=== PATIENT | female | born 1940 | race Caucasian/White ===

== ENCOUNTER 2022-06-07 07:20 | Day surgery (SDC) | payer OTHER, SELFPAY ==
[2022-05-31] MEDS: LACTATED RINGERS 1000 ML 1,000 ML 35 ML IV (11:30)
[2022-06-07] VITALS (30 sets, daily range): BP systolic 85–151; BP diastolic 38–106; PULSE 53–91; RESP 12–20; TEMP 35.4–36.7; O2SAT 86–98; BMI 32.9
[2022-06-07] MEDS: LACTATED RINGERS 1000 ML 1,000 ML 100 ML IV (07:30)
[2022-06-07] MEDS: SODIUM CHLORIDE 0.9 % (FLUSH) 10 ML SYRINGE IVF (07:55)
[2022-06-07] MEDS: CELECOXIB 200 MG CAPSULE PO ×2 (08:06→21:01)
[2022-06-07] MEDS: OXYCODONE (CR) 10 MG TAB.ER.12H PO (08:06)
--- NOTE | 2022-06-07 08:23 | SUR.PREOP ---
TIME?OUT:? PT/RN/MDA?VERIFICATION?OF?SURGICAL?SITE,?PROCEDURE,?AND?CONSENT OBTAINED?PRIOR?TO?INVASIVE?PROCEDURE. correct site identified SITE MARKED BLOCK COMPLETED BY DR Malik GUNN MDA
[2022-06-07] MEDS: fentaNYL 100 MCG/2 ML inj IVP (08:26)
[2022-06-07] MEDS: MIDAZOLAM HCL 1 MG/ML inj IVP (08:26)
[2022-06-07] MEDS: CEFAZOLIN 2 GM INJ IVP (08:40)
[2022-06-07] MEDS: LACTATED RINGERS 1000 ML 1,000 ML 125 ML IV (09:33)
--- NOTE | 2022-06-07 09:56 | W.PM.NB ---
Nerve Block Nerve Block Time Seen by Provider: 07:30 Date Seen: 06/07/22 Type of block requested by surgeon for post-operative analgesia: adductor canal Side: right Time out performed: Yes Verification of patient name: Yes Verification of date of : Yes Site marking: site marked Name of person performing procedure: Richard Continuous monitoring Was continuous monitoring of O2 sat, B/P, traffic monitor specialist, recorded every 15 minutes?: Yes Procedure Checklist: sterile prep, needles and gloves Ultrasound guided. Images saved: Yes Medications given in 5ml increments after negative aspiration: Ropivicaine %: 0.5 mL: 20 Needle gauge: 22 Decadron (mg): 10 Precedex (mcg): 25 Patient tolerated procedure well: Yes Additional comments: Needle noted adjacent to nerve
--- NOTE | 2022-06-07 09:57 | W.PM.NB ---
Nerve Block Nerve Block Time Seen by Provider: 07:30 Date Seen: 06/07/22 Type of block requested by surgeon for post-operative analgesia: geniculars Side: right Time out performed: Yes Verification of patient name: Yes Verification of date of : Yes Site marking: site marked Name of person performing procedure: Richard Continuous monitoring Was continuous monitoring of O2 sat, B/P, nuclear monitoring technician, recorded every 15 minutes?: Yes Procedure Checklist: sterile prep, needles and gloves Ultrasound guided. Images saved: Yes Medications given in 5ml increments after negative aspiration: Ropivicaine %: 0.5 mL: 9 Needle gauge: 25 Patient tolerated procedure well: Yes Additional comments: Needle noted adjacent to nerve
--- NOTE | 2022-06-07 10:00 | CRLHL7_ITS ---
For Patients: As a result of the Cures Act, medical imaging exams and procedure reports are released immediately into your electronic medical record. You may view this report before your referring provider. If you have questions, please contact your health care provider. Indication: POST OP RIGHT TKA Technique: Two views right knee Findings/Impression: Hardware from a right total knee arthroplasty is in satisfactory position. Bone alignment is normal. No sign of acute fracture. Postop changes are within normal limits. Dictated by Suleiman Salinas MD @ 06/07/2022 11:02:22 AM (Electronically Signed)
--- NOTE | 2022-06-07 10:01 | PM.ORPRC ---
Procedure Note Date of procedure: 06/07/22 Procedure: SURGEON: Lobo Gregg MD ELECTRICIAN SHIP: ADELA Spann PREOPERATIVE DIAGNOSIS: Right knee osteoarthritis POSTOPERATIVE DIAGNOSIS: Right knee osteoarthritis NAME OF OPERATION: Right total knee arthroplasty ANESTHESIA: Spinal ESTIMATED BLOOD LOSS: 0 mL COMPLICATIONS: None SPECIMENS: None DRAINS: None PREOPERATIVE ANTIBIOTICS: Ancef 2 grams IMPLANTS: 1. J&J Attune # 5 narrow posterior stabilized femur 2. # 3 fixed-bearing tibia 3. # 5 posterior stabilized, 7 mm fixed-bearing polyethylene 4. 38 patella INDICATIONS: The patient is a 81-year-old female with a longstanding history of severe, unrelenting right knee pain secondary to end-stage (grade IV) right knee osteoarthritis. Despite appropriate nonoperative management, including activity modification, anti-inflammatories, [id number] pain medication, bracing, physical therapy, and injections they continue to have pain and disability. Operative intervention was offered. The risks, benefits and expected outcomes were discussed in detail. These included but were not limited to: Infection, bleeding, injury to blood vessel or nerve, venous thromboembolism. All questions were answered to their satisfaction. Use of an dental hygiene administrative assistant was necessary throughout the case for patient positioning and safety, soft tissue retraction, and closure. PROCEDURE: Spinal anesthesia was administered. The patient was placed supine on the operating table. The dental hygiene administrative assistant made sure the patient was positioned appropriately. The lower extremity was prepped and draped in the usual sterile fashion. The limb was exsanguinated with the Dom bandage. The pneumatic tourniquet was inflated to 300 mmHg. A standard anterior incision was made with the knee in flexion. Subcutaneous dissection was sharply taken through fascial layer #1. Full-thickness medial and lateral flaps were elevated. The dental hygiene administrative assistant retracted the soft tissues and protected them throughout the case. A standard medial parapatellar approach was made. The patella was everted. The infrapatellar fat pad was preserved. The menisci and cruciate ligaments were sharply d?brided. Marginal osteophytes were d?brided with the rongeur. The drill was used to penetrate the femoral canal. The canal was aspirated and irrigated with pulse lavage. The intramedullary femoral guide was placed for a 5-degree valgus cut, removing 10 mm off the distal femur. The saw was used to make the cut. Whitesides line and the trans epicondylar axis were marked. The femoral sizing guide was pinned onto the distal femur. Three degrees of external rotation nicely parallels the transepicondylar axis. Pins were placed for posterior referencing. The four-in-one cutting guide was pinned onto the distal femur. The anterior, posterior, and chamfer cuts were made. The dental hygiene administrative assistant protected the collateral ligaments. The box cutting guide was pinned. The box cuts were made. The boxed trial was placed and was an excellent fit. Drill holes for the lugs were made. Attention was then turned to the proximal tibia. The extramedullary tibial guide was placed for a neutral varus/valgus cut with 5 degrees of posterior slope, removing 1 mm based off the medial tibial surface. The dental hygiene administrative assistant protected the collateral ligaments and the neurovascular bundle. The saw was used to make the cut. Trial components were placed. The knee was nicely balanced in both flexion and extension. Rotation of the tibial component was matched to the femur in full extension, matched to our tibial cutting pins, and marked with cautery. The trial components were removed. The tray was pinned by the dental hygiene administrative assistant and the drill and the punch were used. The tray was removed. The punch was used again. We placed a bone plug in the femoral canal. Attention was then turned to the patella. [place] patellar thickness was 20 mm. The lobster claw resection guide was used with the 7.5 mm clarissa. The saw was used to make the cut. Drill holes were made by the dental hygiene administrative assistant. The trial was placed and was an excellent fit. Cancellous surfaces were irrigated with pulse lavage and thoroughly dried by the dental hygiene administrative assistant. We cemented the tibial component, then the femoral component. A trial spacer was placed. The knee was brought into full extension. We then cemented the patellar component. Excessive cement was removed. The cement was allowed to harden. Any remaining excessive cement was removed with the osteotome. We impacted the 7 mm polyethylene onto the tibial tray. The knee was taken through a range of motion and was found to be nicely balanced in both flexion and extension. The patella tracks centrally. The dental hygiene administrative assistant did a three minute dilute Betadine solution soak. The dental hygiene administrative assistant irrigated the wound with 3 liters of normal saline via pulse lavage. The dental hygiene administrative assistant reapproximated the extensor mechanism with #1 Vicryl in an interrupted [id number] fashion. The dental hygiene administrative assistant then ran the extensor mechanism with a #1 PDO Stratafix. The dental hygiene administrative assistant closed the subcutaneous tissues with a 3-0 Stratafix and the skin with a running 3-0 Stratafix in a subcuticular fashion. Glue was used to seal the skin. The dental hygiene administrative assistant placed a dry dressing, NOREEN stocking, and Polar Care. Sponge and needle counts were correct x2. The patient tolerated the procedure well. There were no apparent complications. They were carefully transferred to the hospital bed and taken to the postanesthesia care unit in satisfactory condition. PLAN: The patient will be mobilized with physical therapy. Aspirin will be used for DVT prophylaxis. They will be discharged to home once medically appropriate.
--- NOTE | 2022-06-07 10:40 | W.ANESCHARGE ---
Anesthesia Charges Start Date/Time Anesthesia Start Date: 06/07/22 Anesthesia Start Time: 08:35 Stop Date/Time Anesthesia Stop Date: 06/07/22 Anesthesia Stop Time: 10:39 Summary Emergency: No Extremes of Age: Over 70-CPT 55324
[2022-06-07] MEDS: LACTATED RINGERS 1000 ML 1,000 ML 35 ML IV ×2 (10:57→10:59)
--- NOTE | 2022-06-07 11:35 | W.ANESCHARGE ---
Anesthesia Charges Start Date/Time Anesthesia Start Date: 06/07/22 Anesthesia Start Time: 08:35 Stop Date/Time Anesthesia Stop Date: 06/07/22 Anesthesia Stop Time: 10:39 Summary Emergency: No Extremes of Age: Over 70-CPT 29095
--- NOTE | 2022-06-07 12:37 | SUR.PHASEI ---
Patient to PACU per bed. Tolerated procedure well. VSS, with exception of SAO2. O2 on per nasal cannula at 3 L. Patient is mouth breather so encouraged to take deep breaths through her nose. Patient was able to move lower extremities upon arrival with complete feeling of each. Patient denied any pain. Dressing to right knee dry and secure with ice on. Patient met discharge criteria for phase I recovery and transferred to med/surg at 1150. Face to face hand-off given to nurse.
--- NOTE | 2022-06-07 12:47 | P.IMCN_ITS ---
Date of Consult Consult date: 06/07/22 Requesting Physician: Orthopedics Primary Care Provider: Not a Local Provider Consult Narrative Reason for consult: management of medical problems postoperatively Narrative: Jemima Godinez is a 81 year old female who underwent right total knee arthroplasty today. Procedure performed by Dr. Gregg. No operative complications. Postoperatively she reports she is doing well. She has no concerns. Nursing staff note that she has been hypoxic and in recovery she was noted to be snoring. She does report that once a while when she sleeps on her back that she does gasp for air that wakes her up. Review of Systems Narrative: She reports she has been feeling well prior to surgery. No recent illness. No shortness of breath or chest pain. No stomach problems. She does report she has chronic loose stools and has multiple bowel movements per day typically. Concern for sleep apnea prior to this surgery. She does report at home she sleeps on her side. She lives alone in her apartment in [place]. She has to do no steps to get in out. She walks with a walker. Her daughter lives nearby. [facility] Medical History (Updated 06/07/22 @ 12:55 by Ryne Park MD) DM (diabetes mellitus), type 2 Hyperlipidemia Hypertension Surgical History (Updated 06/07/22 @ 12:51 by Ryne Park MD) History of cataract surgery Family History (Updated 06/07/22 @ 12:52 by Ryne Park MD) Father Coronary artery disease Mother Coronary artery disease Sister High blood pressure Social History Smoking Status: Never smoker Do you use any of these nicotine containing products: None How often do you have a drink containing alcohol: never How often do you have six or more drinks on one occasion: Never AUDIT-C Alcohol total score: 0 Caffeine: Yes (coffee, 1 cup/day) Meds Home Medications and Allergies Home Medications Medication Instructions Recorded Confirmed Type acetaminophen 500 mg capsule 500 mg PO Q6H PRN 06/03/22 06/07/22 History aspirin 81 mg chewable tablet 81 mg PO DAILY 06/03/22 06/07/22 History cholecalciferol (vitamin D3) 25 1,000 unit PO DAILY 06/03/22 06/07/22 History mcg (1,000 unit) capsule lisinopril 10 1 tab PO DAILY 06/03/22 06/07/22 History mg-hydrochlorothiazide 12.5 mg tablet metformin 1,000 mg tablet 1,000 mg PO BID 06/03/22 06/07/22 History multivitamin 1 tab PO DAILY 06/03/22 06/07/22 History simvastatin 10 mg tablet 10 mg PO HS 06/03/22 06/07/22 History sitagliptin 50 mg tablet (Januvia) 50 mg PO DAILY 06/03/22 06/07/22 History Home Medication Comments: she stop taking aspirin on Monday, 4 days ago Allergies Allergy/AdvReac Type Severity Reaction Status Date / Time Penicillins Allergy Unknown Verified 06/07/22 09:23 Exam Narrative: Exam Narrative: she is alert and appears in no distress. Eyes normal. Oropharynx with very small airway. Poor dentition with multiple missing teeth. Neck is supple without mass or adenopathy. Respirations are clear to auscultation. Cardiovascular: S1, S2, regular rate and rhythm. Abdomen: Bowel sounds active. Abdomen is soft without tenderness or mass. Extremities with intact pulses and sensation. She moves all 4 extremities well. Right knee is bandaged with an ice pack Const: Vital Signs, click to edit/add: Vital Signs - 24 hr 06/07/22 07:42 06/07/22 08:31 06/07/22 10:31 Temperature 98 F 97.2 F L Pulse Rate 78 82 73 Respiratory Rate 20 14 18 Blood Pressure 130/68 135/77 85/48 L Pulse Oximetry 97 86 L 06/07/22 10:35 06/07/22 10:40 06/07/22 10:45 Temperature Pulse Rate 66 53 L 54 L Respiratory Rate 12 16 16 Blood Pressure 89/57 L 92/78 140/81 H Pulse Oximetry 93 94 91 06/07/22 10:50 06/07/22 10:55 06/07/22 11:00 Temperature Pulse Rate 55 L 58 L 61 Respiratory Rate 15 15 16 Blood Pressure 126/63 104/59 L 99/60 Pulse Oximetry 89 89 91 06/07/22 11:04 06/07/22 11:05 06/07/22 11:10 Temperature Pulse Rate 64 62 61 Respiratory Rate 16 15 Blood Pressure 99/60 93/56 L 94/64 Pulse Oximetry 98 92 94 06/07/22 11:13 06/07/22 11:15 07/12/22 11:17 Temperature Pulse Rate 67 66 66 Respiratory Rate Blood Pressure 89/49 L Pulse Oximetry 95 88 97 Documenting provider has reviewed patient's vital signs: yes Assessment and Plan Assessment and plan (1) Low blood pressure: Problem comment: Likely due to surgery. Not felt to be significant blood loss. Possibly related to medications. Status: Acute Assessment and Plan: hold antihypertensive medicines pending return of high blood pressure. Fluid bolus as needed. (2) Hypoxia: Problem comment: Suspect combination of sleep apnea and anesthesia Status: Acute Assessment and Plan: monitor overnight and supplemental oxygen as needed. consider outpatient sleep study (3) Hard of hearing: Status: Acute Assessment and Plan: careful attention to communication needs (4) Hypertension: Status: Acute Assessment and Plan: hold blood pressure medicine for now (5) DM (diabetes mellitus), type 2: Status: Acute Assessment and Plan: monitor blood sugars, sliding scale, resume normal diabetes medicines. (6) Suspected sleep apnea: Status: Acute Assessment and Plan: Outpatient evaluation. Monitoring while she is hospitalized
[2022-06-07] MEDS: OXYCODONE 5 MG TABLET PO ×3 (14:07→19:45)
[2022-06-07] MEDS: CEFAZOLIN 2 GM in 0.9 % SODIUM CHLORIDE Mini-bag 100 ML IVPB ×2 (14:54→22:49)
[2022-06-07] MEDS: ACETAMINOPHEN 500 MG TABLET 1000 MG PO (17:41)
[2022-06-07] MEDS: METFORMIN 1,000 MG TABLET 1000 MG PO (17:43)
[2022-06-07] MEDS: SIMVASTATIN 10 MG TABLET PO (20:59)
[2022-06-07] MEDS: ASPIRIN 81 MG TABLET EC PO (20:59)
--- NOTE | 2022-06-07 23:19 | PC.NURSE ---
End of Shift ([id number]): Patient pleasant and cooperative. Afebrile. Dressing to right knee C/D/I. CMS intact. Rating pain up to 6-9/10 and PRN Oxycodone given x1. Up to bathroom and chair with 1 assist, walker and gait belt. Tolerating regular diet with no nausea.
[2022-06-08] MEDS: ACETAMINOPHEN 500 MG TABLET 1000 MG PO ×3 (00:02→11:41)
[2022-06-08] MEDS: HYDROmorphone 0.5 mg/0.5 ml inj IVP (02:02)
[2022-06-08 03:00] VITALS: BP 96/54; PULSE 75; RESP 16; TEMP 36.6; O2SAT 95
[2022-06-08 05:00] VITALS: RESP 16; O2SAT 95
[2022-06-08] MEDS: CEFAZOLIN 2 GM in 0.9 % SODIUM CHLORIDE Mini-bag 100 ML IVPB (06:30)
--- NOTE | 2022-06-08 07:15 | PC.NURSE ---
Shift 7p-7a: Pt. AOx4, VSS on 1L NC for comfort during sleep. Pt.'s 0500 BP 105/81. Pt. ambulated Assistx1 w/ RW to toilet several times with RN. LR fluids discontinued due to adequate oral intake. Pt. c/o of RT knee pain, well controlled by scheduled Tylenol. Pt. has good pulses on bilateral feet, RT knee incision site dressing C/D/I with cryo cuff applied. Plan for pt. to discharge home today with PT/OT at home.
[2022-06-08] MEDS: OXYCODONE 5 MG TABLET PO ×2 (07:48→11:38)
[2022-06-08] MEDS: METFORMIN 1,000 MG TABLET 1000 MG PO (07:49)
[2022-06-08 08:15] VITALS: BP 122/76; PULSE 79; RESP 20; TEMP 36.8; O2SAT 96
--- NOTE | 2022-06-08 09:07 | P.ORPN_ITS ---
Subjective Subjective Time Seen by Provider: 08:00 Date Seen: 06/08/22 Principal diagnosis: Status post right knee replacement Interval history: Patient is comfortable this morning. Home PT is requested upon discharge. Ortho Exam Narrative Exam Narrative: Alert and oriented x3. Hard of hearing. Patient is in no acute distress. Converses without labored breathing. Hearing is grossly intact. Ambulates with a walker. Examination of the right knee shows dressing is in place. Mild effusion. Mild soft tissue edema about the right knee. CMS intact right lower extremity. Bilateral calves are soft and nontender. Const Vital Signs, click to edit/add: Vital Signs - 24 hr 06/07/22 10:31 06/07/22 10:35 06/07/22 10:40 Temperature 97.2 F L Pulse Rate 73 66 53 L Pulse Rate [Pulse Oximeter] Respiratory Rate 18 12 16 Blood Pressure 85/48 L 89/57 L 92/78 Blood Pressure [Right Arm] Pulse Oximetry 86 L 93 94 06/07/22 10:45 06/07/22 10:50 06/07/22 10:55 Temperature Pulse Rate 54 L 55 L 58 L Pulse Rate [Pulse Oximeter] Respiratory Rate 16 15 15 Blood Pressure 140/81 H 126/63 104/59 L Blood Pressure [Right Arm] Pulse Oximetry 91 89 89 06/07/22 11:00 06/07/22 11:04 06/07/22 11:05 Temperature Pulse Rate 61 64 62 Pulse Rate [Pulse Oximeter] Respiratory Rate 16 16 Blood Pressure 99/60 99/60 93/56 L Blood Pressure [Right Arm] Pulse Oximetry 91 98 92 06/07/22 11:10 06/07/22 11:13 06/07/22 11:15 Temperature Pulse Rate 61 67 66 Pulse Rate [Pulse Oximeter] Respiratory Rate 15 Blood Pressure 94/64 Blood Pressure [Right Arm] Pulse Oximetry 94 95 88 06/07/22 11:17 06/07/22 12:00 06/07/22 12:15 Temperature 95.7 F L 96.3 F L Pulse Rate 66 Pulse Rate [Pulse Oximeter] 69 66 Respiratory Rate 16 16 Blood Pressure 89/49 L Blood Pressure [Right Arm] 128/38 L 97/75 Pulse Oximetry 97 88 97 06/07/22 12:30 06/07/22 12:45 06/07/22 13:00 Temperature 96.5 F L 96.3 F L Pulse Rate Pulse Rate [Pulse Oximeter] 80 86 76 Respiratory Rate 18 16 16 Blood Pressure Blood Pressure [Right Arm] 92/66 109/72 101/61 Pulse Oximetry 95 96 96 06/07/22 13:25 06/07/22 13:30 06/07/22 14:00 Temperature 96.6 F L Pulse Rate Pulse Rate [Pulse Oximeter] 81 78 Respiratory Rate 16 16 16 Blood Pressure Blood Pressure [Right Arm] 104/69 102/81 Pulse Oximetry 95 95 94 06/07/22 15:00 06/07/22 16:00 06/07/22 17:00 Temperature 96.7 F L 97.6 F 98.0 F Pulse Rate Pulse Rate [Pulse Oximeter] 81 87 91 Respiratory Rate 16 16 16 Blood Pressure Blood Pressure [Right Arm] 151/106 H 129/105 H 128/61 Pulse Oximetry 94 95 94 06/07/22 18:00 06/07/22 19:00 06/07/22 21:25 Temperature 97.6 F 97.7 F Pulse Rate Pulse Rate [Pulse Oximeter] 86 82 Respiratory Rate 16 16 Blood Pressure Blood Pressure [Right Arm] 113/82 123/104 H Pulse Oximetry 94 95 95 06/07/22 23:00 06/08/22 03:00 06/08/22 05:00 Temperature 98 F 97.9 F Pulse Rate Pulse Rate [Pulse Oximeter] 75 75 Respiratory Rate 16 16 16 Blood Pressure Blood Pressure [Right Arm] 125/68 96/54 L Pulse Oximetry 92 95 95 06/08/22 08:15 Temperature 98.2 F Pulse Rate Pulse Rate [Pulse Oximeter] 79 Respiratory Rate 20 Blood Pressure Blood Pressure [Right Arm] 122/76 Pulse Oximetry 96 Assessment and Plan Assessment and plan (1) Low blood pressure: Problem details: Likely due to surgery. Not felt to be significant blood loss. Possibly related to medications. Status: Acute (2) Hypoxia: Problem details: Suspect combination of sleep apnea and anesthesia Status: Acute (3) Hard of hearing: Status: Acute (4) Hypertension: Status: Acute (5) DM (diabetes mellitus), type 2: Status: Acute (6) Suspected sleep apnea: Status: Acute (7) Status post right knee replacement: Problem details: Plan for discharge is today to home if they meet discharge criteria. DVT prophylaxis includes aspirin 81 mg twice daily x1 month, Reji stockings x1 m onth may remove for 1 hr per day, frequent ambulation Remove dressing in 1 week. Observe wound and phone Orthopedics with any questions or concerns Return to clinic in 1 week for a wound check Return to clinic in [address] Gregg Minimize narcotic use. Wean off and discontinue soon as possible. Activities as tolerated. No strenuous activity. In-home physical therapy verses Outpatient physical therapy as scheduled. Staff is in into home physical therapy for Jemima. Ice and elevate the operative extremity. No restriction on ice. Status: Acute
[2022-06-08] MEDS: CELECOXIB 200 MG CAPSULE PO (09:31)
[2022-06-08] MEDS: MULTIVITAMIN/MINERALS 1 TABLET 1 TAB PO (09:31)
[2022-06-08] MEDS: ASPIRIN 81 MG TABLET EC PO (09:31)
[2022-06-08] MEDS: SENNOSIDES 1 TAB TABLET 2 TAB PO (09:32)
[2022-06-08] MEDS: SITAGLIPTIN PHOSPHATE 50 MG TABLET PO (09:33)
[2022-06-08 09:42] LABS: Mean Corpuscular HGB Conc 32 gm/dL (32-36); Mean Corpuscular Hemoglobin 31 pg (26-34); Mean Corpuscular Volume 95 fL (80-100); Platelet Count* 222 K/uL (140-440); Red Blood Count 3.28 m/uL (4.00-5.20); White Blood Count* 16.39 K/uL (4.50-11.00)
[2022-06-08 09:43] LABS: Slide Review Reflex No
[2022-06-08 09:53] LABS: Chloride* 99 mmol/L (96-114); Potassium* 4.5 mmol/L (3.6-5.1); Sodium* 130 mmol/L (135-149)
[2022-06-08 09:56] LABS: Blood Urea Nitrogen* 29 mg/dL (7-30); Carbon Dioxide* 22 mmol/L (20-32); Creatinine* 1.2 mg/dL (0.5-1.5); Est. Creatinine Clearance* 28.59; Estimated Glomerular Filt Rate 45.19
[2022-06-08 12:00] VITALS: BP 118/93; PULSE 76; RESP 18; TEMP 36.5; O2SAT 92
--- NOTE | 2022-06-08 12:58 | PM.DS1 ---
DS: Providers Provider Primary care physician: Not a Local Provider Attending Physician on discharge: Lobo Gregg MD DS: Diagnosis Discharge Diagnosis (1) Status post right knee replacement: Status: Acute Problem details: Plan for discharge is today to home if they meet discharge criteria. DVT prophylaxis includes aspirin 81 mg twice daily x1 month, Reji stockings x1 month may remove for 1 hr per day, frequent ambulation Remove dressing in 1 week. Observe wound and phone Orthopedics with any questions or concerns Return to clinic in 1 week for a wound check Return to clinic in [address] Gregg Minimize narcotic use. Wean off and discontinue soon as possible. Activities as tolerated. No strenuous activity. In-home physical therapy verses Outpatient physical therapy as scheduled. Staff is in into home physical therapy for Jemima. Ice and elevate the operative extremity. No restriction on ice. (2) Low blood pressure: Status: Acute Problem details: Likely due to surgery. Not felt to be significant blood loss. Possibly related to medications. Blood pressure better this morning. Resume blood pressure medicines on discharge (3) Hypoxia: Status: Acute Problem details: Suspect combination of sleep apnea and anesthesia . Did not need oxygen overnight. (4) Suspected sleep apnea: Status: Acute Problem details: consider sleep study as outpatient. DS: Summary Hospital Course Hospital Course: 81-year-old female admitted to the hospital for right total knee arthroplasty. Procedures performed on the day of admission by Dr. Gregg. There were no complications. She has been doing well postoperatively. She did have low blood pressure postoperatively and that has improved. Blood pressure medicines have been temporarily held. She was hypoxic postoperatively and that has improved as well. There was suspicion for sleep apnea though after she recovers from anesthesia she did well. Status at Discharge Functional status at discharge: uses cane/walker Time Spent with Patient Time attestation: Total time spent providing and/or coordinating discharge services: Time spent: Greater than 30 minutes Exam Narrative: Exam Narrative: She is alert and appears in no distress. She is hard of hearing. Breathing is unlabored. She has just finished breakfast. Lower extremities are examined without marked edema it. She has intact peripheral pulses motion and strength. Const: Vital Signs, click to edit/add: Vital Signs - 24 hr 06/07/22 13:00 06/07/22 13:25 06/07/22 13:30 Temperature 96.3 F L 96.6 F L Pulse Rate [Pulse Oximeter] 76 81 Respiratory Rate 16 16 16 Blood Pressure [Ri ght Arm] 101/61 104/69 Pulse Oximetry 96 95 95 06/07/22 14:00 06/07/22 15:00 06/07/22 16:00 Temperature 96.7 F L 97.6 F Pulse Rate [Pulse Oximeter] 78 81 87 Respiratory Rate 16 16 16 Blood Pressure [Ri ght Arm] 102/81 151/106 H 129/105 H Pulse Oximetry 94 94 95 06/07/22 17:00 06/07/22 18:00 06/07/22 19:00 Temperature 98.0 F 97.6 F 97.7 F Pulse Rate [Pulse Oximeter] 91 86 82 Respiratory Rate 16 16 16 Blood Pressure [Ri ght Arm] 128/61 113/82 123/104 H Pulse Oximetry 94 94 95 06/07/22 21:25 06/07/22 23:00 06/08/22 03:00 Temperature 98 F 97.9 F Pulse Rate [Pulse Oximeter] 75 75 Respiratory Rate 16 16 Blood Pressure [Ri ght Arm] 125/68 96/54 L Pulse Oximetry 95 92 95 06/08/22 05:00 06/08/22 08:15 06/08/22 12:00 Temperature 98.2 F 97.7 F Pulse Rate [Pulse Oximeter] 79 76 Respiratory Rate 16 20 18 Blood Pressure [Ri ght Arm] 122/76 118/93 H Pulse Oximetry 95 96 92 Documenting provider has reviewed patient's vital signs: yes DS: Data Data Completed and Pending Labs on day of discharge: Labs from last 24 hours 06/08/22 06/08/22 09:20 09:20 WBC 16.39 H RBC 3.28 L Hgb 10.0 L Hct 31.0 L MCV 95 MCH 31 MCHC 32 Plt Count 222 Sodium 130 L Potassium 4.5 Chloride 99 Carbon Dioxide 22 BUN 29 Creatinine 1.2 Estimated Creat Clear 28.59 Discharge Plan Discharge Disposition: Home, Self-Care Discharging Surgeon: Lobo Gregg Follow-Up Appointment: One week Prescriptions: New aspirin 81 mg Tablet,Delayed Release (Dr/Ec) 81 mg PO BID Qty: 60 0RF acetaminophen 500 mg Tablet 500 - 1,000 mg PO Q6H PRNQty: 100 0RF oxycodone 5 mg Tablet 2.5 - 5 mg PO Q4-6H MDD 6 tabs per day PRN (Reason: Pain) Qty: 42 0RF Rx Instructions: Minimize. Discontinue as soon as possible sennosides [Senna Lax] 8.6 mg Tablet 2 tab PO BID PRNQty: 100 0RF Continued simvastatin 10 mg tablet 10 mg PO HS 0RF metformin 1,000 mg tablet 1,000 mg PO BID 0RF lisinopril-hydrochlorothiazide 10-12.5 mg tablet 1 tab PO DAILY 0RF Januvia 50 mg tablet 50 mg PO DAILY 0RF cholecalciferol (vitamin D3) 25 mcg (1,000 unit) capsule 1,000 unit PO DAILY 0RF multivitamin Tablet 1 tab PO DAILY 0RF Discontinued aspirin 81 mg tablet,chewable 81 mg PO DAILY 0RF acetaminophen 500 mg capsule 500 mg PO Q6H PRN0RF Activity Level: Activity as Tolerated and No strenuous activity Activity Detail: Keep dressing on for 1 week. Dressing is waterproof. May shower. Surgical glue covers the wound. Attend Outpatient physical therapy as scheduled. Ice operative extremity without restriction. Wear compression stockings for 1 month post surgery. May remove for 1 hour per day. Notify Orthopedics with any questions or concerns ([phone]). Discharge Diet: Diabetic Forms: Work/Release Restrictions Follow-up: Orthopedics, [facility] [Provider Group] - 06/15/22 11:40 am (Appointment with Hannah at [facility].) Lobo Gregg MD [Staff Physician] - (Schedule [address] Gregg appointment at [facility] appointment. ) Provider,Not a Local [Primary Care Provider] - Discharge Orders: Discharge Order (Routine); Ordered 06/08/22 Ordered By: Ryne Park
[2022-06-08 13:00] VITALS: O2SAT 97
--- NOTE | 2022-06-08 14:00 | PC.SOCIAL ---
Social work: Prior to discharge, met with pt who requested [facility] be contacted for home care orders for pt/ot. Called [facility] in [facility], and confirmed with Hannah that pt is on service for toe nail clipping every other month. Dtr has already contacted home care about request for PT/OT at discharge. Faxed requested information to [facility] and confirmed they will be able to start home care PT/OT and will contact pt/family regarding schedule.
--- NOTE | 2022-06-08 17:59 | PC.NURSE ---
shift note: vss stable. incision site c/d/i to rt knee. pt up 1/walker with steady gait. pt medicated for 4/10 pain x3 with oxycodone. Iv dc'd intact Rt wrist by pt. Reviewed dc instructions with pt and her daughter. copies sent with pt at wi. belongings sent with pt at wi. Cryo cuff sent with pt after instructing pt's daughter on how to operate.
== END 2022-06-08 13:55 | disposition home or self-care (01) ==
LOC: OR 07:22 → MEDSURG 11:13
PROVIDERS: Physician Assistant; Visit Provider Orthopaedic Surgery
PROC: (CPT 27447; principal; 2022-06-07 08:15)
DX: M17.11 Unilateral primary osteoarthritis, right knee (principal); I95.81 Postprocedural hypotension; R09.02 Hypoxemia; I10 Essential (primary) hypertension; E11.9 Type 2 diabetes mellitus without complications; E78.5 Hyperlipidemia, unspecified
CPT/HCPCS: 27447; 1402; 36415; 64447; 64454; 73560; 76942; 80051; 82565; 82947; 84520; 85027; 97110; 97116; 97161; 97165; 97530; 97535; 99100; A9153; A9270; C1776; J0690; J1100; J1170; J2250; J2370; J2405; J2704; J2795; J3010; J7120

== ENCOUNTER 2025-04-23 15:34 | Inpatient (IN) | payer OTHER, SELFPAY ==
[2025-04-22] VITALS (25 sets, daily range): BP systolic 90–133; BP diastolic 57–92; PULSE 60–86; RESP 16–22; TEMP 36.1–36.6; O2SAT 89–96; BMI 32.6
[2025-04-22] MEDS: CELECOXIB 200 MG CAPSULE PO (07:42)
[2025-04-22] MEDS: MIDAZOLAM HCL 1 MG/ML inj IVP (07:42)
[2025-04-22] MEDS: LACTATED RINGERS 1000 ML 1,000 ML 100 ML IV ×2 (08:00→10:32)
[2025-04-22] MEDS: ACETAMINOPHEN 500 MG TABLET 1000 MG PO ×3 (08:30→18:46)
[2025-04-22] MEDS: fentaNYL 100 MCG/2 ML inj IVP (08:35)
--- NOTE | 2025-04-22 08:41 | P.ANES_ITS ---
Anesthesia Charges Start Date/Time Anesthesia Start Date: 04/22/25 Anesthesia Start Time: 08:57 Stop Date/Time Anesthesia Stop Date: 04/22/25 Anesthesia Stop Time: 11:05 Summary Extremes of Age - Over 70 or under 1: MDA Coding CPT Codes CPT Codes: ANESTH KNEE ARTHROPLASTY - 77575 ([id number]) P2 - PATIENT W/MILD SYST DISEASE, QK - METAL BONDING ASSEMBLER 2-4 CNCRNT ANES PROC, QX - LAB INTERN SVC W/ MD MED DIRECTION Additional Codes: Summary - Extremes of Age - Over 70 or under 1: MDA ([id number])
--- NOTE | 2025-04-22 08:41 | W.ANESCHARGE ---
Anesthesia Charges Start Date/Time Anesthesia Start Date: 04/22/25 Anesthesia Start Time: 08:57 Stop Date/Time Anesthesia Stop Date: 04/22/25 Anesthesia Stop Time: 11:05 Summary Extremes of Age - Over 70 or under 1: MDA Coding CPT Codes CPT Codes: ANESTH KNEE ARTHROPLASTY - 79185 ([id number]) P2 - PATIENT W/MILD SYST DISEASE, QK - MAPPER 2-4 CNCRNT ANES PROC, QX - WIPER BLENDER SVC W/ MD MED DIRECTION Additional Codes: Summary - Extremes of Age - Over 70 or under 1: MDA ([id number])
--- NOTE | 2025-04-22 08:41 | W.PM.NB ---
Nerve Block Nerve Block Time Seen by Provider: 08:35 Date Seen: 04/22/25 Type of block requested by surgeon for post-operative analgesia: adductor canal Side: left Time out performed: Yes Verification of patient name: Yes Verification of date of : Yes Site marking: site marked Name of person performing procedure: Richard Continuous monitoring Was continuous monitoring of O2 sat, B/P, vehicle monitor technician, recorded every 15 minutes?: Yes Procedure Checklist: sterile prep, needles and gloves Ultrasound guided. Images saved: Yes Medications given in 5ml increments after negative aspiration: Marcaine %: 0.25 mL: 15 Needle gauge: 20 Precedex (mcg): 25 Patient tolerated procedure well: Yes Block Charges Block Charge (with Pro Fee): Femoral Nerve Use of Ultrasound Machine for Block: Yes- US Guidance/pain block
--- NOTE | 2025-04-22 08:42 | W.PM.NB ---
Nerve Block Nerve Block Time Seen by Provider: 08:35 Date Seen: 04/22/25 Type of block requested by surgeon for post-operative analgesia: geniculars Side: left Time out performed: Yes Verification of patient name: Yes Verification of date of : Yes Site marking: site marked Name of person performing procedure: Richard Continuous monitoring Was continuous monitoring of O2 sat, B/P, deputy coroner investigator, recorded every 15 minutes?: Yes Procedure Checklist: sterile prep, needles and gloves Ultrasound guided. Images saved: Yes Medications given in 5ml increments after negative aspiration: Marcaine %: 0.25 mL: 9 Needle gauge: 25 Patient tolerated procedure well: Yes Block Charges Block Charge (with Pro Fee): Genicular Nerve Block
--- NOTE | 2025-04-22 08:48 | SUR.PREOP ---
TIME?OUT:?0830, left knee PT/RN/MDA?VERIFICATION?OF?SURGICAL?SITE,?PROCEDURE,?AND?CONSENT OBTAINED?PRIOR?TO?INVASIVE?PROCEDURE.
[2025-04-22] MEDS: TRANEXAMIC ACID 100 MG/ML INJ 1000 MG IV (09:26)
[2025-04-22] MEDS: CEFAZOLIN 1 GM inj IVP (09:28)
--- NOTE | 2025-04-22 10:25 | CRLHL7_ITS ---
For Patients: As a result of the Cures Act, medical imaging exams and procedure reports are released immediately into your electronic medical record. You may view this report before your referring provider. If you have questions, please contact your health care provider. Indication: POSTOP TKA Technique: Two views left knee Findings/Impression: Hardware from a left total knee arthroplasty is in satisfactory position. Bone alignment is normal. No sign of acute fracture. Postop changes are within normal limits. Dictated by Suleiman Salinas MD @ 04/22/2025 11:35:38 AM (Electronically Signed)
--- NOTE | 2025-04-22 10:28 | P.ORPRC_ITS ---
Procedure Note Date of procedure: 04/22/25 Procedure: PREOPERATIVE DIAGNOSIS: Left knee osteoarthritis POSTOPERATIVE DIAGNOSIS: Left knee osteoarthritis NAME OF OPERATION: Left total knee arthroplasty SURGEON: Lobo Gregg MD PIE BAKERY LABORER: ADELA Spann ANESTHESIA: Spinal ESTIMATED BLOOD LOSS: 0 mL COMPLICATIONS: None SPECIMENS: None DRAINS: None PREOPERATIVE ANTIBIOTICS: Ancef 2 grams, antibiotic impregnated cement IMPLANTS: 1. J&J Attune # 5 posterior stabilized femur 2. # 5 fixed-bearing tibia 3. # 5 posterior stabilized, 8 mm fixed-bearing polyethylene 4. 38 patella INDICATIONS: The patient is a 84-year-old with a longstanding history of severe, unrelenting left knee pain secondary to end-stage (grade IV) left knee osteoarthritis. Despite appropriate nonoperative management, including activity modification, anti-inflammatories, [id number] pain medication, bracing, physical therapy, and injections they continue to have pain and disability. Operative intervention was offered. The risks, benefits and expected outcomes were discussed in detail. These included but were not limited to: Infection, bleeding, injury to blood vessel or nerve, venous thromboembolism. All questions were answered to their satisfaction. Use of an expanded duty dental assistant was necessary throughout the case for patient positioning and safety, soft tissue retraction, and closure. PROCEDURE: Spinal anesthesia was administered. The patient was placed supine on the operating table. The expanded duty dental assistant made sure the patient was positioned appropriately. The lower extremity was prepped and draped in the usual sterile fashion. The limb was exsanguinated with the Dom bandage. The pneumatic tourniquet was inflated to 300 mmHg. A standard anterior incision was made with the knee in flexion. Subcutaneous dissection was sharply taken through fascial layer #1. Full-thickness medial and lateral flaps were elevated. The expanded duty dental assistant retracted the soft tissues and protected them throughout the case. A standard subvastus approach was made. The patella was subluxed. The infrapatellar fat pad was preserved. The menisci and cruciate ligaments were sharply d?brided. Marginal osteophytes were d?brided with the rongeur. The drill was used to penetrate the femoral canal. The canal was aspirated and irrigated with pulse lavage. The intramedullary femoral guide was placed for a 5-degree valgus cut, removing 10 mm off the distal femur. The saw was used to make the cut. Whitesides line and the trans epicondylar axis were marked. The femoral sizing guide was pinned onto the distal femur. Three degrees of external rotation nicely parallels the transepicondylar axis. Pins were placed for posterior referencing. The four-in-one cutting guide was pinned onto the distal femur. The anterior, posterior, and chamfer cuts were made. The expanded duty dental assistant protected the collateral ligaments. The box cutting guide was pinned. The box cuts were made. The boxed trial was placed and was an excellent fit. Drill holes for the lugs were made. Attention was then turned to the proximal tibia. The extramedullary tibial guide was placed for a neutral varus/valgus cut with 5 degrees of posterior slope, removing 1 mm based off the medial tibial surface. The expanded duty dental assistant protected the collateral ligaments and the neurovascular bundle. The saw was used to make the cut. Trial components were placed. The knee was nicely balanced in both flexion and extension. The trial components were removed. The tray was placed in appropriate rotation, parallel to our tibial cutting pins. It was pinned by the expanded duty dental assistant and the drill and the punch were used. The tray was removed. The punch was used again. We placed a bone plug in the femoral canal. Attention was then turned to the patella. [place] patellar thickness was 20.5 mm. The lobster claw resection guide was used with the 7.5 mm clarissa. The saw was used to make the cut. Drill holes were made by the expanded duty dental assistant. The trial was placed and was an excellent fit. Cancellous surfaces were irrigated with pulse lavage and thoroughly dried by the expanded duty dental assistant. We cemented the tibial component, then the femoral component. We impacted the 8 mm polyethylene onto the tibial tray. The knee was brought into full extension. We then cemented the patellar component. Excessive cement was removed. The cement was allowed to harden. The knee was taken through a range of motion and was found to be nicely balanced in both flexion and extension. The patella tracks centrally. The expanded duty dental assistant did a three minute dilute Betadine solution soak. The expanded duty dental assistant irrigated the wound with 3 liters of normal saline via pulse lavage. The expanded duty dental assistant reapproximated the extensor mechanism with #1 Vicryl in an interrupted [id number] fashion. The expanded duty dental assistant then ran the extensor mechanism with a #1 PDO Stratafix. The expanded duty dental assistant closed the subcutaneous tissues with a 3-0 Stratafix and the skin with a running 3-0 Stratafix in a subcuticular fashion. Glue was used to seal the skin. The expanded duty dental assistant placed a dry dressing. Sponge and needle counts were correct x2. The patient tolerated the procedure well. There were no apparent complications. They were carefully transferred to the hospital bed and taken to the ostanesthesia care unit in satisfactory condition. PLAN: The patient will be mobilized with physical therapy. Aspirin will be used for DVT prophylaxis. They will be discharged to home once medically appropriate.
--- NOTE | 2025-04-22 11:08 | P.ANES_ITS ---
Anesthesia Charges Start Date/Time Anesthesia Start Date: 04/22/25 Anesthesia Start Time: 08:57 Stop Date/Time Anesthesia Stop Date: 04/22/25 Anesthesia Stop Time: 11:05 Summary Extremes of Age - Over 70 or under 1: FURNITURE MOVER HELPER Coding CPT Codes CPT Codes: ANESTH KNEE ARTHROPLASTY - 14675 ([id number]) P2 - PATIENT W/MILD SYST DISEASE, QK - ENGINEERING SCIENTIST 2-4 CNCRNT ANES PROC, QX - FURNITURE MOVER HELPER SVC W/ MD MED DIRECTION Additional Codes: Summary - Extremes of Age - Over 70 or under 1: FURNITURE MOVER HELPER ([id number])
--- NOTE | 2025-04-22 11:08 | W.ANESCHARGE ---
Anesthesia Charges Start Date/Time Anesthesia Start Date: 04/22/25 Anesthesia Start Time: 08:57 Stop Date/Time Anesthesia Stop Date: 04/22/25 Anesthesia Stop Time: 11:05 Summary Extremes of Age - Over 70 or under 1: LEGAL CLERK Coding CPT Codes CPT Codes: ANESTH KNEE ARTHROPLASTY - 29422 ([id number]) P2 - PATIENT W/MILD SYST DISEASE, QK - RESEARCH MECHANIC 2-4 CNCRNT ANES PROC, QX - LEGAL CLERK SVC W/ MD MED DIRECTION Additional Codes: Summary - Extremes of Age - Over 70 or under 1: LEGAL CLERK ([id number])
[2025-04-22] MEDS: HYDROmorphone 0.5 mg/0.5 ml inj IVP ×3 (12:05→17:08)
--- NOTE | 2025-04-22 14:49 | PM.IMCN1 ---
Date of Consult Consult date: 04/22/25 Requesting Physician: Orthopedics Primary Care Provider: Not a Local Provider Consult Narrative Reason for consult: DM2, HTN, hyperlipidemia Narrative: Jemima Godinez is a 84 year old female with type 2 diabetes mellitus, hypertension, and hyperlipidemia who underwent elective left total knee arthroplasty today for severe osteoarthritis. She is doing well postoperatively. She was just seen by PT, who got her up to the chair. She notes some pain starting in her left knee and is getting some pain medication for that. Nursing staff has no concerns at this time. I have reviewed her preoperative H&P from this month at the [facility] and Dr. Park's notes from her right total knee arthroplasty in 2021. At that time she was noted to be hypoxic and snoring in recovery and had low pressures postoperatively. So far no neither of those things have been noted this time. [place] Preop visit EK04/11/2025 12:54 PM CDT Sinus rhythm Premature supraventricular complexes Right bundle branch block with secondary ST-T abnormalities Left anterior fascicular block Bifascicular block When compared with ECG of 31-May-2022 14:49, No significant change was found Reviewed by SHARON Curran Review of Systems Status of ROS: Reports: 6 or more systems reviewed and unremarkable except as noted in History and below [facility] Medical History (Updated 04/22/25 @ 15:37 by Candace Lambert MD) Hard of hearing ?H91.90 - Unspecified hearing loss, unspecified ear (ICD-10) Hyperlipidemia ?E78.5 - Hyperlipidemia, unspecified (ICD-10) DM (diabetes mellitus), type 2 ?E11.9 - Type 2 diabetes mellitus without complications (ICD-10) Hypertension ?I10 - Essential (primary) hypertension (ICD-10) Surgical History (Updated 04/22/25 @ 15:33 by Candace Lambert MD) Status post left knee replacement (04/22/25) ?Z96.652 - Presence of left artificial knee joint (ICD-10) Status post right knee replacement (06/07/22) ?Z96.651 - Presence of right artificial knee joint (ICD-10) History of cataract surgery ?Z98.49 - Cataract extraction status, unspecified eye (ICD-10) Family History Father Coronary artery disease Mother Coronary artery disease Sister High blood pressure Social History (Updated 04/22/25 @ 15:31 by Candace Lambert MD) Narrative: She lives in a senior apartment. She is a never smoker and denies alcohol use. What is your current living situation?: I presently have a place to live Problems where you live: no known problems In the past 12 months, utilities in danger of being shut off: no In past 12 months, lack of transportation kept you from medical appts, meetings, work, or getting things needed for daily living: no In the past 12 mos, have been you worried that your food would run out before you had money to buy more?: never true In the past 12 mos, the food you bought just didn't last and you didn't have money to buy more?: never true Smoking Status: Never smoker Do you use any of these nicotine containing products: None How often do you have a drink containing alcohol: never How often do you have six or more drinks on one occasion: Never AUDIT-C Alcohol total score: 0 Caffeine: Yes (coffee, 1 cup/day) Meds Home Medications and Allergies Home Medications ?Medication ?Instructions ?Recorded ?Confirmed ?Type cholecalciferol (vitamin D3) 25 1,000 unit PO DAILY 06/03/22 04/22/25 History mcg (1,000 unit) capsule lisinopril 10 1 tab PO DAILY 06/03/22 04/22/25 History mg-hydrochlorothiazide 12.5 mg tablet metformin 1,000 mg tablet 1,000 mg PO BID 06/03/22 04/22/25 History multivitamin 1 tab PO DAILY 06/03/22 04/22/25 History simvastatin 10 mg tablet 10 mg PO HS 06/03/22 04/22/25 History sitagliptin phosphate 50 mg tablet 50 mg PO DAILY 06/03/22 04/22/25 History (Januvia) omega 3-fvl-feh-fish oil 100 cap PO 06/14/23 04/02/25 History mg-160 mg-1,000 mg capsule (Fish Oil) aspirin 81 mg tablet,delayed 81 mg PO QDAY 04/02/25 04/22/25 History release Held on 04/22/25. Instructions: Resume on 05/23/25. vit C 250 mg-vit E 90 mg-zinc 40 1 tab PO BID 04/02/25 04/17/25 History mg-copper 1 aj-byjevj-eipbus capsule (PreserVision AREDS-2) apple cider vinegar 500 mg tablet 500 mg PO DAILY 04/17/25 04/17/25 History turmeric root extract 500 mg 500 mg PO DAILY 04/17/25 04/17/25 History capsule acetaminophen 500 mg capsule 500 - 1,000 mg (1 - 2 x 500 mg) PO 04/22/25 Rx Q6H PRN pain #100 caps aspirin 81 mg chewable tablet 81 mg PO BID for DVT prophylaxis 04/22/25 Rx (Aspirin Childrens) 30 days #60 tabs hydromorphone 2 mg tablet 2 mg PO Q6H PRN pain #28 tabs 04/22/25 Rx sennosides 8.6 mg tablet (Senna 17.2 mg (2 x 8.6 mg) PO BID PRN 04/22/25 Rx Lax) constipation #100 tabs Allergies Allergy/AdvReac Type Severity Reaction Status Date / Time Penicillins Allergy Unknown Verified 04/22/25 07:47 oxycodone AdvReac Intermediate urination Verified 04/22/25 07:47 Exam Narrative: Exam Narrative: General: No acute distress. Awake alert oriented x3. Very hard of hearing, even with hearing aids in. HEENT: Normocephalic atraumatic, pupils equally round and reactive to light and accommodation. Oropharynx clear. Mucous membranes are moist. No cervical lymphadenopathy, thyromegaly or carotid bruits. No JVD. Cardiovascular: Regular rate and rhythm. No murmurs, gallops, or rubs. Chest: No increased work of breathing. Clear to auscultation bilaterally. No crackles or wheezes. Abdomen: Bowel sounds present. Soft, nondistended, nontender. No hepatosplenomegaly or masses. Extremities: Left knee bandage is clean, dry, and intact. No edema, no cyanosis or clubbing. Skin: No jaundice, no pallor, no rashes on visible skin. Const: Vital Signs, click to edit/add: Vital Signs - 24 hr 04/22/25 08:05 04/22/25 08:35 04/22/25 08:40 Temperature 97.7 F Pulse Rate 77 73 69 Respiratory Rate 20 20 20 Blood Pressure 133/77 112/78 99/67 Pulse Oximetry 95 95 89 Oxygen Delivery Me thod Room Air Nasal Cannula Nasal Cannula Oxygen Flow Rate 3 3 Fraction of Inspir ed Oxygen 04/22/25 08:45 04/22/25 11:00 04/22/25 11:05 Temperature 97.0 F L Pulse Rate 65 76 72 Respiratory Rate 20 18 18 Blood Pressure 98/60 130/84 124/87 Pulse Oximetry 95 94 94 Oxygen Delivery Me thod OxyMask Room Air Room Air Oxygen Flow Rate 4 Fraction of Inspir ed Oxygen 04/22/25 11:10 04/22/25 11:15 04/22/25 11:20 Temperature Pulse Rate 70 65 70 Respiratory Rate 16 16 16 Blood Pressure 123/76 131/84 116/69 Pulse Oximetry 93 95 94 Oxygen Delivery Me thod Room Air Room Air Room Air Oxygen Flow Rate Fraction of Inspir ed Oxygen 04/22/25 11:25 04/22/25 11:30 04/22/25 11:35 Temperature 97.4 F L Pulse Rate 67 60 62 Respiratory Rate 16 16 16 Blood Pressure 123/70 124/57 L 131/68 Pulse Oximetry 92 95 94 Oxygen Delivery Me thod Nasal Cannula Nasal Cannula Room Air Oxygen Flow Rate 2 2 Fraction of Inspir ed Oxygen 100 100 04/22/25 11:45 04/22/25 12:15 04/22/25 12:30 Temperature 97.4 F L 97.4 F L Pulse Rate 69 71 71 Respiratory Rate 16 16 16 Blood Pressure 112/76 133/77 101/64 Pulse Oximetry 92 94 94 Oxygen Delivery Me thod Room Air Room Air Room Air Oxygen Flow Rate 2 Fraction of Inspir ed Oxygen 100 04/22/25 12:45 04/22/25 13:00 04/22/25 13:15 Temperature 97.5 F L 97.5 F L 97.5 F L Pulse Rate 68 68 68 Respiratory Rate 18 16 16 Blood Pressure 114/79 90/78 103/86 Pulse Oximetry 94 94 94 Oxygen Delivery Me thod Room Air Room Air Room Air Oxygen Flow Rate Fraction of Inspir ed Oxygen 04/22/25 14:00 Temperature 97.5 F L Pulse Rate 68 Respiratory Rate 16 Blood Pressure 104/92 H Pulse Oximetry 96 Oxygen Delivery Me thod Room Air Oxygen Flow Rate Fraction of Inspir ed Oxygen Assessment and Plan Assessment and plan (1) Status post left knee replacement: Problem comment: 04/22/2025 Dr. Gregg - Routine post op cares - VTE prophylaxis with SCDs, BID Aspirin 81 mg Status: Acute (2) Osteoarthritis of left knee: Status: Chronic (3) DM (diabetes mellitus), type 2: Problem comment: - 04/01/2025 Hgb A1c 6.7% - resume home metformin and Januvia Status: Chronic (4) Hypertension: Problem comment: - BP soft, has h/o low BP after other knee surgery 3 years ago. Hold lisinopril/HCTZ, monitor. Status: Chronic (5) Hard of hearing: Problem comment: - careful attention to communication needs Status: Chronic
[2025-04-22] MEDS: HYDROmorphone 2 MG TABLET PO (14:59)
--- NOTE | 2025-04-22 15:08 | PC.SOCIAL ---
Addendum entered by ALICIA Crandall 04/22/25 16:48: Discharge planning: aids social worker spoke to pt's daughter, Hetal, via phone this afternoon and updated her that [facility] does not have PT/OT home care services. Pt's daughter, Hetal, is the the pt's DISTILLERY LABORER and is employed through [facility] and had thought that they had PT/OT services. Pt's daughter understood and shared she was fine with any medical home care agency that has openings for PT/OT in the [place] area. Social work to follow-up as needed. Addendum entered by ALICIA Crandall 04/22/25 15:49: Discharge planning: aids social worker spoke to a franchise sales representative in the HR Department at [facility] #[phone] who stated that they do not have physical therapists and occupational therapists and they are more a DISTILLERY LABORER service focused agency that accepts private pay and waivers mainly. aids social worker will update pt's daughter, Hetal, with this information. Social work to follow-up as needed. Original Note: Discharge planning: aids social worker met with the pt and her two daughters, Hetal and Sully, after pt's surgery. Pt and her daughters stated they would like her to use [facility] home care services for PT/OT in the home, as pt has used them for home care services in the past. aids social worker will reach out to [facility] #[phone] to see if they currently have PT/OT availability in [place], [place] where the pt lives. Social work to follow-up as needed.
[2025-04-22] MEDS: CEFAZOLIN 2 GM in 0.9 % SODIUM CHLORIDE Mini-bag 100 ML IVPB ×2 (15:30→23:37)
[2025-04-22] MEDS: METFORMIN 1,000 MG TABLET 1000 MG PO (18:46)
--- NOTE | 2025-04-22 19:09 | PC.NURSE ---
Nursing Care Hours: 8610-5036 Pt this shift alert and oriented, MORONGO, pain controlled. Denies chest pain and nausea. Ax1 to bathroom tolerated well. Tolerating regular diet. Pedal pulses present. SpO2 drops to 85-85% on RA while resting. Family member states pt as TALISHA. No CPAP here. IV saline locked. Pt is DM2, POC BS 270, order for sliding scale pending.
[2025-04-22] MEDS: MAG HYDROX/ALUMINUM HYD/SIMETH 30 ML ORAL.SUSP PO (20:17)
[2025-04-22] MEDS: SENNOSIDES 1 TAB TABLET 2 TAB PO (21:46)
[2025-04-22] MEDS: SIMVASTATIN 10 MG TABLET PO (21:46)
[2025-04-22] MEDS: ASPIRIN 81 MG TABLET EC PO (21:46)
[2025-04-22] MEDS: INSULIN ASPART 100 UNIT/ML SUBCUT (22:15)
[2025-04-23 02:55] VITALS: BP 144/90; PULSE 85; RESP 20; TEMP 36.4; O2SAT 95
[2025-04-23] MEDS: HYDROmorphone 2 MG TABLET PO ×3 (02:57→20:43)
[2025-04-23] MEDS: ACETAMINOPHEN 500 MG TABLET 1000 MG PO ×4 (02:58→19:45)
[2025-04-23 06:22] LABS: Basophils Percent Auto 0.3 % (0.0-3.0); Eosinophils Percent Auto 0.1 % (0.0-7.0); Hematocrit* 32.4 % (33.0-51.0); Hemoglobin* 10.4 gm/dL (12.0-16.0); Immature Granulocytes Pct Auto 0.1 %; Lymphocytes Percent Auto 15.2 % (20-44); Mean Corpuscular HGB Conc 32 gm/dL (32-36); Mean Corpuscular Hemoglobin 30 pg (26-34); Mean Corpuscular Volume 95 fL (80-100); Monocytes Percent Auto 12.4 % (0.0-11.0); Neutrophils Percent Auto 71.9 % (42.0-72.0); Platelet Count* 252 K/uL (140-440); Red Blood Count* 3.43 m/uL (4.00-5.20); White Blood Count* 13.76 K/uL (4.50-11.00)
[2025-04-23 06:23] LABS: Slide Review Reflex No
[2025-04-23 06:33] LABS: Potassium* 4.8 mmol/L (3.6-5.1); Sodium* 133 mmol/L (135-149)
[2025-04-23 06:36] LABS: Blood Urea Nitrogen* 24 mg/dL (7-30); Est. Creatinine Clearance* 32.53; Estimated Glomerular Filt Rate 55 ml/min
[2025-04-23 06:53] LABS: INR 0.93 (0.91-1.10); Prothrombin Time 13.3 Seconds
[2025-04-23 07:00] VITALS: BP 133/81; PULSE 77; RESP 18; TEMP 36.6; O2SAT 94
--- NOTE | 2025-04-23 07:20 | PC.NURSE ---
Pleasent, alert and oriented. VSS. 1a, though needs cueing with the walker at times. Pt denies pain when asked, though stated ow and ouch when walking to bathroom.?Pt has periods of forgetfulness and impulsivity, redirectable. Ice pack to affected knee, dressing C/D/I. Hard of hearing needs reinforcement at times. Pt stated discomfort on the left side of the abdomen. No pain with palpation, bowel sounds active, stated pain started after eating. Pt brought to the bathroom; pt stated improvement. Prn malox provided as well. Pt utilizes call light appropriately. Pt in bed, appears to be resting, call light within reach. ?
[2025-04-23] MEDS: METFORMIN 1,000 MG TABLET 1000 MG PO ×2 (08:15→18:06)
--- NOTE | 2025-04-23 08:26 | P.ORPN_ITS ---
Subjective Subjective Time Seen by Provider: 08:26 Date Seen: 04/23/25 Principal diagnosis: Status post left knee replacement Interval history: Jemima states she did not get much sleep last night. She moves well. She easily got out of bed on her own accord into the restroom with her walker and 1 assist. She will be discharging to home today. She requests home PT and OT. Co Founder & Ceo has been assisting her. She has 2 daughters that will assist her at home. Jemima states 1 works during the day. Ortho Exam Narrative Exam Narrative: Alert and oriented x3. Patient is in no acute distress. Converses without labored breathing. Hearing is grossly intact. Ambulates with a walker. Examination of the left knee shows the dressing is intact. No erythema or warmth or sign of infection. Very minimal edema. No anterior knee hematoma. Easily able to straight leg raise. Easily able to get in and out of bed on her own accord. Calf is soft and nontender. CMS intact left lower extremity. Const Vital Signs, click to edit/add: Vital Signs - 24 hr 04/22/25 08:35 04/22/25 08:40 04/22/25 08:45 Temperature Pulse Rate 73 69 65 Pulse Rate [Left Pulse Oximeter] Respiratory Rate 20 20 20 Blood Pressure 112/78 99/67 98/60 Blood Pressure [Right Arm] Pulse Oximetry 95 89 95 Oxygen Delivery Method Nasal Cannula Nasal Cannula OxyMask Oxygen Flow Rate 3 3 4 Fraction of Inspired Oxygen 04/22/25 11:00 04/22/25 11:05 04/22/25 11:10 Temperature 97.0 F L Pulse Rate 76 72 70 Pulse Rate [Left Pulse Oximeter] Respiratory Rate 18 18 16 Blood Pressure 130/84 124/87 123/76 Blood Pressure [Right Arm] Pulse Oximetry 94 94 93 Oxygen Delivery Method Room Air Room Air Room Air Oxygen Flow Rate Fraction of Inspired Oxygen 04/22/25 11:15 04/22/25 11:20 04/22/25 11:25 Temperature Pulse Rate 65 70 67 Pulse Rate [Left Pulse Oximeter] Respiratory Rate 16 16 16 Blood Pressure 131/84 116/69 123/70 Blood Pressure [Right Arm] Pulse Oximetry 95 94 92 Oxygen Delivery Method Room Air Room Air Nasal Cannula Oxygen Flow Rate 2 Fraction of Inspired Oxygen 100 04/22/25 11:30 04/22/25 11:35 04/22/25 11:45 Temperature 97.4 F L Pulse Rate 60 62 69 Pulse Rate [Left Pulse Oximeter] Respiratory Rate 16 16 16 Blood Pressure 124/57 L 131/68 112/76 Blood Pressure [Right Arm] Pulse Oximetry 95 94 92 Oxygen Delivery Method Nasal Cannula Room Air Room Air Oxygen Flow Rate 2 Fraction of Inspired Oxygen 100 04/22/25 12:15 04/22/25 12:30 04/22/25 12:45 Temperature 97.4 F L 97.4 F L 97.5 F L Pulse Rate 71 71 68 Pulse Rate [Left Pulse Oximeter] Respiratory Rate 16 16 18 Blood Pressure 133/77 101/64 114/79 Blood Pressure [Right Arm] Pulse Oximetry 94 94 94 Oxygen Delivery Method Room Air Room Air Room Air Oxygen Flow Rate 2 Fraction of Inspired Oxygen 100 04/22/25 13:00 04/22/25 13:15 04/22/25 14:00 Temperature 97.5 F L 97.5 F L 97.5 F L Pulse Rate 68 68 68 Pulse Rate [Left Pulse Oximeter] Respiratory Rate 16 16 16 Blood Pressure 90/78 103/86 104/92 H Blood Pressure [Right Arm] Pulse Oximetry 94 94 96 Oxygen Delivery Method Room Air Room Air Room Air Oxygen Flow Rate Fraction of Inspired Oxygen 04/22/25 15:00 04/22/25 15:00 04/22/25 16:00 Temperature Pulse Rate 84 Pulse Rate [Left Pulse Oximeter] 86 Respiratory Rate 16 16 18 Blood Pressure 120/78 Blood Pressure [Right Arm] Pulse Oximetry 92 93 Oxygen Delivery Method Room Air Room Air Oxygen Flow Rate Fraction of Inspired Oxygen 04/22/25 17:00 04/22/25 19:20 04/22/25 23:00 Temperature 97.7 F 97.6 F 97.8 F Pulse Rate 85 Pulse Rate [Left Pulse Oximeter] 77 77 Respiratory Rate 18 18 22 Blood Pressure 113/66 Blood Pressure [Right Arm] 112/73 117/72 Pulse Oximetry 91 93 95 Oxygen Delivery Method Room Air Room Air Room Air Oxygen Flow Rate Fraction of Inspired Oxygen 04/22/25 23:00 04/22/25 23:03 04/23/25 02:55 Temperature 97.6 F Pulse Rate Pulse Rate [Left Pulse Oximeter] 85 85 Respiratory Rate 20 20 Blood Pressure Blood Pressure [Right Arm] 144/90 H Pulse Oximetry 92 95 Oxygen Delivery Method Room Air Oxygen Flow Rate Fraction of Inspired Oxygen 04/23/25 07:00 Temperature 97.8 F Pulse Rate Pulse Rate [Left Pulse Oximeter] 77 Respiratory Rate 18 Blood Pressure Blood Pressure [Right Arm] 133/81 Pulse Oximetry 94 Oxygen Delivery Method Room Air Oxygen Flow Rate Fraction of Inspired Oxygen Assessment and Plan Assessment and plan (1) Status post left knee replacement: Problem details: 04/22/2025 Dr. Gregg - Routine post op cares - VTE prophylaxis with SCDs, BID Aspirin 81 mg Status: Acute Assessment and Plan: Plan for discharge is today to home if they meet discharge criteria. DVT prophylaxis includes aspirin 81 mg twice daily x1 month, Compression stockings as needed for swelling. Frequent ambulation, every hour throughout the day. Remove dressing in 1 week. Observe wound and phone Orthopedics with any questions or concerns Return to clinic in 1 week for a wound check Return to clinic in 6 weeks with surgeon Minimize narcotic use. Wean off and discontinue soon as possible. Activities as tolerated. No strenuous activity. Outpatient physical therapy as scheduled. Ice and elevate the operative extremity. No restriction on ice. Dr. Park was given paperwork to fill out for in home OT and PT. she does not drive. Her daughter works during the day and will be with her at night [facility]. Hydromorphone for pain, for she has allergy to oxycodone.
[2025-04-23] MEDS: SENNOSIDES 1 TAB TABLET 2 TAB PO ×2 (08:53→20:43)
[2025-04-23] MEDS: ASPIRIN 81 MG TABLET EC PO ×2 (08:54→20:43)
[2025-04-23] MEDS: SITAGLIPTIN PHOSPHATE 50 MG TABLET PO (09:00)
[2025-04-23 11:00] VITALS: BP 154/81; PULSE 84; RESP 18; TEMP 36.7; O2SAT 94
--- NOTE | 2025-04-23 11:44 | PC.SOCIAL ---
Addendum entered by Kera Michele CAR PARKER 04/23/25 13:17: Confirmed that [facility] is not [employer] contracted. Information being reviewed by [place]. MEt with family and provided them with list of contracted faciltiies an Department of [facility] Ratings. If pt is not accepted to [facility], family requested placement in a [employer] contracted facility in [facility]. psych social worker to follow up as needed. Original Note: Discharge planning: Met with pt who is agreeable to plan for a short term rehab SNF stay. Provided her with a list of long term facilities contracted with [employer]. PT requested this be discussed with her daughter. Called jose ramon Fong, who requested information be sent to [facility] as pt wants to stay as close to [place] as possible. [place] facility is not on the list of contracted facilities. Secure emailed referral packet to [facility]. Also inquired whether [facility] in [place] is contracted with pt's [employer] insurance. psych social worker to follow up as needed.
[2025-04-23] MEDS: MAG HYDROX/ALUMINUM HYD/SIMETH 30 ML ORAL.SUSP PO (13:28)
[2025-04-23] MEDS: INSULIN ASPART 100 UNIT/ML SUBCUT ×3 (13:28→20:43)
--- NOTE | 2025-04-23 13:50 | P.IMPN_ITS ---
Assessment and Plan Assessment and plan (1) Status post left knee replacement: Problem comment: 04/22/2025 Dr. Gregg - Routine post op cares - VTE prophylaxis with SCDs, BID Aspirin 81 mg Status: Acute (2) Low blood pressure: Problem comment: Likely due to surgery. Not felt to be significant blood loss. Possibly related to medications. Blood pressure better postop day 1. Resume blood press ure medicines on discharge Status: Acute (3) Hard of hearing: Problem comment: - careful attention to communication needs Status: Chronic (4) Hypertension: Problem comment: - BP soft, has h/o low BP after other knee surgery 3 years ago. Hold lisinopril/HCTZ, monitor. Status: Chronic (5) DM (diabetes mellitus), type 2: Problem comment: - 04/01/2025 Hgb A1c 6.7% - resume home metformin and Januvia Status: Chronic (6) Suspected sleep apnea: Problem comment: consider sleep study as outpatient. Status: Acute (7) Discharge planning issues: Problem comment: Patient does not appear to be ready to return home on her own today. Will continue to evaluate with therapy and to work with vp digital marketing social media and crm about alternatives. Status: Acute Plan Continue in hospital for ongoing evaluation management of postoperative issues of pain and disability. Total time spent is 40 minutes in coordination of care and discussing with patient and other providers ongoing management of postoperative pain and disability Subjective Date Seen: 04/23/25 Interval history: Jemima Godinez is a 84 year old female with type 2 diabetes mellitus, hypertension, and hyperlipidemia who underwent elective left total knee arthroplasty today for severe osteoarthritis. She is doing well postoperatively. She was just seen by PT, who got her up to the chair. She notes some pain starting in her left knee and is getting some pain medication for that. Nursing staff has no concerns at this time. I have reviewed her preoperative H&P from this month at the [facility] and Dr. Park's notes from her right total knee arthroplasty in 2021. At that time she was noted to be hypoxic and snoring in recovery and had low pressures postoperatively. So far no neither of those things have been noted this time. 04/23/2025: Postop day 1. Patient reports pain in her knee consistent with expected course postop knee replacement surgery. Therapy notes that she is moving with some difficulty and having a hard time following instructions in part due to hearing problems. She reports pain control is adequate. She has been able to eat. Exam Narrative: Exam Narrative: She is alert and appears in no distress. Pleasant and cooperative. Respirations are clear to auscultation. Cardiovascular: S1, S2, regular rate and rhythm. 1/6 systolic murmur. Abdomen: Bowel sounds are present. Abdomen is soft without tenderness or mass. Feet with intact pulses sensation and good strength in both feet and ankles. She is observed to walk slowly in the hallway with walker and standby assist. Const: Vital Signs, click to edit/add: Vital Signs - 24 hr 04/22/25 14:00 04/22/25 15:00 04/22/25 15:00 Temperature 97.5 F L Pulse Rate 68 Pulse Rate [Left P ulse Oximeter] 86 Respiratory Rate 16 16 16 Blood Pressure 104/92 H Blood Pressure [Ri ght Arm] Pulse Oximetry 96 92 Oxygen Delivery Me thod Room Air Room Air 04/22/25 16:00 04/22/25 17:00 04/22/25 19:20 Temperature 97.7 F 97.6 F Pulse Rate 84 85 Pulse Rate [Left P ulse Oximeter] 77 Respiratory Rate 18 18 18 Blood Pressure 120/78 113/66 Blood Pressure [Ri ght Arm] 112/73 Pulse Oximetry 93 91 93 Oxygen Delivery Me thod Room Air Room Air Room Air 04/22/25 23:00 04/22/25 23:00 04/22/25 23:03 Temperature 97.8 F Pulse Rate Pulse Rate [Left P ulse Oximeter] 77 85 Respiratory Rate 22 20 Blood Pressure Blood Pressure [Ri ght Arm] 117/72 Pulse Oximetry 95 92 Oxygen Delivery Me thod Room Air Room Air 04/23/25 02:55 04/23/25 07:00 04/23/25 07:00 Temperature 97.6 F 97.8 F Pulse Rate Pulse Rate [Left P ulse Oximeter] 85 77 Respiratory Rate 20 18 18 Blood Pressure Blood Pressure [Ri ght Arm] 144/90 H 133/81 Pulse Oximetry 95 94 94 Oxygen Delivery Me thod Room Air Room Air 04/23/25 07:00 Temperature Pulse Rate Pulse Rate [Left P ulse Oximeter] 77 Respiratory Rate 18 Blood Pressure Blood Pressure [Ri ght Arm] Pulse Oximetry Oxygen Delivery Me thod Documenting provider has reviewed patient's vital signs: yes Labs Labs: Laboratory Results - last 24 hr 04/23/25 06:00 WBC 13.76 H RBC 3.43 L Hgb 10.4 L Hct 32.4 L MCV 95 MCH 30 MCHC 32 RDW Coeff of Corby 13.0 Plt Count 252 Neut % (Auto) 71.9 Lymph % (Auto) 15.2 L Forrest % (Auto) 12.4 H Eos % (Auto) 0.1 Baso % (Auto) 0.3 Neut # (Auto) 9.90 H Lymph # (Auto) 2.10 Forrest # (Auto) 1.70 H Eos # (Auto) 0.00 Baso # (Auto) 0.00 Abs Immat Gran (auto) 0.00 Imm/Tot Granulo (auto) 0.1 INR 0.93 Sodium 133 L Potassium 4.8 BUN 24 Creatinine 1.0 Estimated Creat Clear 32.53 Estimated GFR 55
[2025-04-23 15:00] VITALS: BP 108/87; PULSE 84; RESP 18; TEMP 36.7; O2SAT 94
--- NOTE | 2025-04-23 15:39 | PC.SOCIAL ---
Discharge planning: SW met with patient and patient's daughters who state they are wanting an update on what facility can take patient and what time she will be leaving. SW explained that thus far referrals have been sent to [place] and that we will update our liaison that family would also like [facility] facilities if [place] is unavailable. Daughters asked when will we know by. MARINA explained that we may know if we have an accepting facility today, but patient will not be leaving today. MAIRNA explained that once we have a facility that accepts, the facility then has to complete a prior authorization for insurance which could take a couple of hours up to a day. MARINA explained that we don't have an answer right now on exactly when patient will leave or how long the process will take, but we will keep them updated in person or if they are not here, by phone. Daughters had no further questions at this time.
--- NOTE | 2025-04-23 18:58 | PC.NURSE ---
End of Shift: Patient pleasant and cooperative, A&O. VSS, afebrile. SpO2 maintained above 90% on RA. Dressing to left knee C/D/I. Patient reports pain in her left knee this shift, managed with PRN medication, see MAR. 1A with walker and gait belt.
[2025-04-23 19:00] VITALS: BP 176/98; PULSE 91; RESP 18; TEMP 36.6; O2SAT 96
[2025-04-23] MEDS: SIMVASTATIN 10 MG TABLET PO (20:43)
[2025-04-23 23:00] VITALS: BP 161/80; PULSE 81; RESP 18; TEMP 36.6; O2SAT 93; O2SAT 95
[2025-04-24 02:21] VITALS: BP 163/74; PULSE 91; RESP 18; TEMP 36.7; O2SAT 91
[2025-04-24] MEDS: HYDROmorphone 2 MG TABLET PO (02:22)
[2025-04-24] MEDS: ACETAMINOPHEN 500 MG TABLET 1000 MG PO ×2 (03:09→09:11)
--- NOTE | 2025-04-24 04:59 | PC.NURSE ---
Shift note: Patient continue to have urinary frequency. Needs to use BR every hour. Which disrupted sleep. However, patient was able to fall back to sleep immediately from the BR use. Doing ambulated with A1, walker and GB. Dressing intact, clean and dry. Pain rated at 4 and 6 and respected well to Deluded and scheduled Tylenol. Appears to be forgetful. May benefit from SNF placement.
[2025-04-24 06:32] LABS: Basophils Percent Auto 0.2 % (0.0-3.0); Eosinophils Percent Auto 0.2 % (0.0-7.0); Hematocrit* 34.2 % (33.0-51.0); Hemoglobin* 11.2 gm/dL (12.0-16.0); Immature Granulocytes Pct Auto 0.6 %; Lymphocytes Percent Auto 16.2 % (20-44); Mean Corpuscular HGB Conc 33 gm/dL (32-36); Mean Corpuscular Hemoglobin 30 pg (26-34); Mean Corpuscular Volume 92 fL (80-100); Monocytes Percent Auto 15.4 % (0.0-11.0); Neutrophils Percent Auto 67.4 % (42.0-72.0); Platelet Count* 271 K/uL (140-440); RDW Coefficient of Variation % 13.1 % (11.5-15.5); Red Blood Count* 3.71 m/uL (4.00-5.20)
[2025-04-24 06:35] LABS: Slide Review Reflex No
[2025-04-24 06:44] LABS: Sodium* 129 mmol/L (135-149)
[2025-04-24 06:45] LABS: Potassium* 4.5 mmol/L (3.6-5.1)
[2025-04-24 06:47] LABS: Blood Urea Nitrogen* 17 mg/dL (7-30); Creatinine* 0.9 mg/dL (0.5-1.5); Est. Creatinine Clearance* 32.53; Estimated Glomerular Filt Rate 63 ml/min
[2025-04-24 06:56] LABS: INR 1.02 (0.91-1.10); Prothrombin Time 14.2 Seconds
[2025-04-24 07:00] VITALS: PULSE 100; RESP 20; O2SAT 93
[2025-04-24 08:11] VITALS: BP 156/86; PULSE 100; RESP 20; TEMP 36.7; O2SAT 93
[2025-04-24] MEDS: ASPIRIN 81 MG TABLET EC PO (08:15)
[2025-04-24] MEDS: METFORMIN 1,000 MG TABLET 1000 MG PO (08:16)
[2025-04-24] MEDS: SENNOSIDES 1 TAB TABLET 2 TAB PO (08:16)
[2025-04-24] MEDS: lisinopriL 10 MG TABLET PO (08:23)
[2025-04-24] MEDS: INSULIN ASPART 100 UNIT/ML SUBCUT (08:24)
--- NOTE | 2025-04-24 10:25 | PM.DS1 ---
DS: Providers Provider Date Seen: 04/24/25 Date of admission: 04/23/25 15:34 Primary care physician: Not a Local Provider Admitting Clinician: Lobo Gregg MD Attending Physician on discharge: Lobo Gregg MD Date of Discharge: 04/24/25 DS: Diagnosis Discharge Diagnosis (1) Status post left knee replacement: Status: Acute Problem details: 04/22/2025 Dr. Gregg - Routine post op cares - VTE prophylaxis with SCDs, BID Aspirin 81 mg (2) DM (diabetes mellitus), type 2: Status: Chronic Problem details: - 04/01/2025 Hgb A1c 6.7% - resume home metformin and Januvia (3) Discharge planning issues: Status: Acute Problem details: Patient still needing standby assist with ambulation. Poorly tolerating activity. Consideration of correction facility was made. Insurance denied initial request (4) Hyponatremia: Status: Acute Problem details: Patient had low sodium of 129 after surgery. Likely related to surgery and hydrochlorothiazide therapy. Recheck in 1-2 weeks. DS: Summary Hospital Course Hospital Course: Jemima Godinez is a 84 year old female with type 2 diabetes mellitus, hypertension, and hyperlipidemia who underwent elective left total knee arthroplasty today for severe osteoarthritis. She is doing well postoperatively. She was just seen by PT, who got her up to the chair. She notes some pain starting in her left knee and is getting some pain medication for that. Nursing staff has no concerns at this time. I have reviewed her preoperative H&P from this month at the [facility] and Dr. Park's notes from her right total knee arthroplasty in 2021. At that time she was noted to be hypoxic and snoring in recovery and had low pressures postoperatively. So far no neither of those things have been noted this time. 04/23/2025: Postop day 1. Patient reports pain in her knee consistent with expected course postop knee replacement surgery. Therapy notes that she is moving with some difficulty and having a hard time following instructions in part due to hearing problems. She reports pain control is adequate. She has been able to eat. 04/24/2025: Postop day 2. Patient reports still having quite a bit of pain. Therapy notes that she is still needing standby assist for safety. She is able to walk with a walker. She still needs to stop to rest after a about 15 ft of walking. Attempts to get correction facility placement denied by insurance. After discussion with family they agree that they will stay with her at home and we will arrange home PT and OT and nurse's aide. Time Spent with Patient Time attestation: Total time spent providing and/or coordinating discharge services: Exam Narrative: Exam Narrative: She is alert and appears in no distress. Respirations are clear to auscultation. Cardiovascular: S1, S2, regular rate and rhythm. Abdomen is soft without tenderness or mass. Extremities without edema. Const: Vital Signs, click to edit/add: Vital Signs - 24 hr 04/23/25 11:00 04/23/25 15:00 04/23/25 15:00 Temperature 98.1 F 98.1 F Pulse Rate [Left P ulse Oximeter] 84 84 Respiratory Rate 18 18 18 Blood Pressure [Ri ght Arm] 154/81 H 108/87 Pulse Oximetry 94 94 94 Oxygen Delivery Me thod Room Air Room Air Room Air 04/23/25 15:00 04/23/25 19:00 04/23/25 23:00 Temperature 98 F Pulse Rate [Left P ulse Oximeter] 84 91 81 Respiratory Rate 18 18 18 Blood Pressure [Ri ght Arm] 176/98 H Pulse Oximetry 96 Oxygen Delivery Me thod Room Air 04/23/25 23:00 04/23/25 23:00 04/24/25 02:21 Temperature 98 F 98.1 F Pulse Rate [Left P ulse Oximeter] 81 91 Respiratory Rate 18 18 18 Blood Pressure [Ri ght Arm] 161/80 H 163/74 H Pulse Oximetry 95 93 91 Oxygen Delivery Me thod Room Air Room Air Room Air 04/24/25 07:00 04/24/25 07:00 04/24/25 08:11 Temperature 98.1 F Pulse Rate [Left P ulse Oximeter] 100 100 Respiratory Rate 20 20 Blood Pressure [Ri ght Arm] 156/86 H Pulse Oximetry 93 93 Oxygen Delivery Me thod Room Air Room Air Documenting provider has reviewed patient's vital signs: yes DS: Data Data Completed and Pending Labs on day of discharge: Labs from last 24 hours 04/24/25 05:52 WBC 12.40 H RBC 3.71 L Hgb 11.2 L Hct 34.2 MCV 92 MCH 30 MCHC 33 RDW Coeff of Corby 13.1 Plt Count 271 Neut % (Auto) 67.4 Lymph % (Auto) 16.2 L Bay % (Auto) 15.4 H Eos % (Auto) 0.2 Baso % (Auto) 0.2 Neut # (Auto) 8.40 H Lymph # (Auto) 2.00 Bay # (Auto) 1.90 H Eos # (Auto) 0.00 Baso # (Auto) 0.00 Abs Immat Gran (auto) 0.10 Imm/Tot Granulo (auto) 0.6 INR 1.02 Sodium 129 L Potassium 4.5 BUN 17 Creatinine 0.9 Estimated Creat Clear 32.53 Estimated GFR 63 Discharge Plan Discharge Disposition: Home w/ Parent or Adult Date of Admission: 04/23/25 15:34 Attending Provider on Discharge: Ryne Park [employer] Providers: Reva Ricci; Leana Srivastava; Suraj Son; Ulices Mark; Christ Starr; Noel Corrigan; Risa Bellamy; Shell Tenorio; Joyce Lal; Rajendra Rios; Candace Lambert; Enrico Caputo; Ryne Park; Flavia Sepulveda; Louie Benito; Haim Hernández; Abiola Larkin; Jesus Martin; Marietta Silva; Yuni De Leon; Akin Sanford; Margi Cline; Juliet Payne; Cherelle Pizarro; Iris Adams; Don Adams; Merlin Loja; Tito Solis; Kedar Hopper; Nora Sparks; Halina Manriquez; George Grande Primary Care Provider: Provider,Not a Local Anticipated Discharge Date/Time: 04/24/25 10:30 Discharge Medications: New sennosides [Senna Lax] 8.6 mg Tablet 17.2 mg PO BID PRN (Reason: constipation) Qty: 100 0RF hydromorphone 2 mg tablet 2 mg PO Q6H MDD 4 tabs per day PRN (Reason: pain) Qty: 28 0RF Rx Instructions: Minimize. Discontinue as soon as possible aspirin [Aspirin Childrens] 81 mg tablet,chewable 81 mg PO BID 30 Days Qty: 60 0RF acetaminophen 500 mg capsule 500 - 1,000 mg PO Q6H MDD 4000mg per day PRN (Reason: pain) Qty: 100 0RF Continued Fish Oil 100-160-1,000 mg capsule PO PreserVision AREDS-2 250-90-40-1 mg capsule 1 tab PO DAILY simvastatin 10 mg tablet 10 mg PO HS metformin 1,000 mg tablet 1,000 mg PO BID lisinopril-hydrochlorothiazide 10-12.5 mg tablet 1 tab PO DAILY Januvia 50 mg tablet 50 mg PO DAILY cholecalciferol (vitamin D3) 25 mcg (1,000 unit) capsule 1,000 unit PO DAILY multivitamin Tablet 1 tab PO DAILY apple cider vinegar 500 mg tablet 500 mg PO DAILY turmeric root extract 500 mg capsule 500 mg PO DAILY Held aspirin 81 mg tablet,delayed release (DR/EC) 81 mg PO QDAY Hold Instructions: Resume on 05/23/25. Discharge Orders: Discharge Order (Routine); Ordered 04/24/25 Ordered By: Ryne Park [employer] provider completed their portion of the discharge: Yes Patient Education: Acetaminophen (By mouth), Aspirin (By mouth), Hydromorphone (By mouth), Senna (By mouth), Total Knee Replacement (DC) Activity Level: No strenuous activity and Light activity Activity Detail: Keep dressing on for 1 week. Dressing is waterproof. May shower. Attend outpatient physical therapy if scheduled. Ice and elevate operative extremity without restriction. Swelling and bruising will worsen within the first week. When swelling occurs, elevate the extremity above heart level several times a day and gently massage/pull soft tissue swelling toward hip. This allows gravity to assist in eliminating the swelling/edema. Wear compression stockings/leon bandages as needed for swelling. Ambulate every hour throughout the day. If you drive, Do not drive while taking narcotic pain medication. Do not drink alcohol while taking narcotic pain medication. May drive when safe to do so and have full function of the extremities, this may take 6 weeks or more. Notify Orthopedics with any questions or concerns. ([phone]) Discharge Diet: Regular Follow Up Appointments: Esmer Ashton PA-C [Physician Drinking Water Technician, Orthopedics] - 04/30/25 2:00 pm Referral Note: [facility] for follow-up. Provider,Not a Local [Primary Care Provider, Family Practice] Referral Note: See your primary care provider in 1-2 weeks. Check basic metabolic panel in 1-2 weeks. Forms: RxCost Containment Info Instructions
--- NOTE | 2025-04-24 10:47 | PC.SOCIAL ---
Addendum entered by STEPHEN Ochoa 04/24/25 11:36: Discharge planning: Confirmed with [facility] in the [place] office, that they can open this pt to PT/OT services this weekend and will reach out to family to schedule visits. Discharge information and orders sent to [place] [facility] for follow up. Met with erin and provided them with information on this agency. Family is pleased with this plan and questions were answered. Original Note: Discharge planning: Received information from Julian at [facility] that pt's [employer] insurance is denying a prior auth for short term rehab stay. Called [facility], who states she has been speaking with family and pt and they want to take pt home at discharge and will provide 24/7 care at home. Dtr is agreeable to plan for home health PT/OT. Information on available Home Care Agencies and their Department of Health ratings was provided. Dtr states she wants this arranged with any agency contracted with pt's [employer] insurance. Called and secure emailed information to [facility] and awaiting decision on acceptance of home health care referral. Emailed Julian to update him on discharge plan. 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
[2025-04-24] MEDS: SITAGLIPTIN PHOSPHATE 50 MG TABLET PO (11:28)
--- NOTE | 2025-04-24 11:50 | PC.NURSE ---
Pt doing well. VSS. Pain is fairly controlled with PRN medications, ice and elevation. Pt tolerating ambulation with frequent breaks, using walker and gaitbelt. Pt discharged home at 1145 via daughters. Pt belongings and discharge instructions signed. Education reviewed, no questions or concerns at this time.
== END 2025-04-24 11:45 | disposition home or self-care (01) | DRG 470 ==
LOC: OR 04-24 07:29 → MEDSURG 04-24 07:29
PROVIDERS: Admitting Provider Orthopaedic Surgery; Visit Provider Orthopaedic Surgery
PROC: 0SRD0J9 Replacement of Left Knee Joint with Synthetic Substitute, Cemented, Open Approach (ICD-10-PCS; CPT 27447; principal; 2025-04-22 09:00)
DX: M17.12 Unilateral primary osteoarthritis, left knee (principal); E87.1 Hypo-osmolality and hyponatremia; G89.18 Other acute postprocedural pain; I95.81 Postprocedural hypotension; I10 Essential (primary) hypertension; E11.9 Type 2 diabetes mellitus without complications; Z79.84 Long term (current) use of oral hypoglycemic drugs; Z79.82 Long term (current) use of aspirin; R09.02 Hypoxemia; H91.90 Unspecified hearing loss, unspecified ear; E78.5 Hyperlipidemia, unspecified; Z96.652 Presence of left artificial knee joint; Z96.651 Presence of right artificial knee joint
CPT/HCPCS: 01402; 36415; 64447; 64454; 73560; 76942; 82565; 82962; 84132; 84295; 84520; 85025; 85610; 97110; 97116; 97161; 97165; 97530; 97535; 99100; A9270; C1776; J0665; J0690; J1100; J1171; J2250; J2704; J3010; J7120